=== PATIENT | female | born 1995 | race Caucasian/White ===

== ENCOUNTER 2017-12-25 20:41 | Emergency (ER) | payer OTHER ==
[2017-12-25] MEDS ORDERED: METHYLPREDNISOLONE INJ 125 MG/2 ML SDV IV ONE (22:21)
[2017-12-25] MEDS ORDERED: NORMAL SALINE 1000 ML 1,000 ML IV ONE (22:21)
[2017-12-25] MEDS ORDERED: FAMOTIDINE INJ/PF 20 MG/2 ML SDV IV ONE (22:21)
[2017-12-25] MEDS ORDERED: DIPHENHYDRAMINE HCL 50 MG/ML VIAL IV ONE ×2 (22:21→23:30)
--- NOTE | 2017-12-25 22:22 | ER Document Report ---
ED Allergic Reaction - General Chief Complaint: Allergic Reaction Stated Complaint: POSSIBLE ALLERGIC REACTION Time Seen by Provider: 12/25/17 22:15 Notes: Patient is a 22-year-old female who comes emergency department for chief complaint of allergic reaction. She states she was out running when she started to feel itchiness in her face, then she suddenly broke out into an itchy rash all over her body mainly on her arms, legs, and back. She denies any difficulty breathing or swallowing, denies any swelling of the tongue or face. She denies history of the same. No daily medications reported. 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 LMP within the past month. TRAVEL OUTSIDE OF THE [place] IN LAST 30 DAYS: No - Related Data Allergies/Adverse Reactions: mushroom Allergy (Verified 12/25/17 21:23) Past Medical History - General Information source: Patient - Social History Smoking Status: Never Smoker Chew tobacco use (# tins/day): No Frequency of alcohol use: Social Drug Abuse: None Lives with: Family Family History: None Patient has suicidal ideation: No Patient has homicidal ideation: No Renal/ Medical History: Denies: Hx Peritoneal Dialysis Past Surgical History: Reports: Hx Orthopedic Surgery - left ring finger reattached Review of Systems - Review of Systems Constitutional: No symptoms reported EENT: No symptoms reported Cardiovascular: No symptoms reported Respiratory: No symptoms reported Gastrointestinal: No symptoms reported Genitourinary: No symptoms reported Female Genitourinary: No symptoms reported Musculoskeletal: No symptoms reported Skin: See HPI Hematologic/Lymphatic: No symptoms reported Neurological/Psychological: No symptoms reported Physical Exam - Vital signs Vitals: Temp Pulse Resp BP Pulse Ox 97.7 F 121 H 16 115/85 96 12/25/17 20:55 12/25/17 20:55 12/25/17 20:55 12/25/17 20:55 12/25/17 20:55 - Notes Notes: GENERAL: Alert, interacts well. No acute distress. HEAD: Normocephalic, atraumatic. EYES: Pupils equal, round, and reactive to light. Extraocular movements intact. ENT: Oral mucosa moist, tongue midline. No uvular edema, no posterior pharyngeal swelling, no airway compromise, normal oropharyngeal exam otherwise. NECK: Full range of motion. Supple. Trachea midline. LUNGS: Clear to auscultation bilaterally, no wheezes, rales, or rhonchi. No respiratory distress. HEART: Regular rate and rhythm. No murmur ABDOMEN: Soft, non-tender. Non-distended. Bowel sounds present in all 4 quadrants. EXTREMITIES: Moves all 4 extremities spontaneously. No edema, normal radial and dorsalis pedis pulses bilaterally. No cyanosis. BACK: no cervical, thoracic, lumbar midline tenderness. No saddle anesthesia, normal distal neurovascular exam. NEUROLOGICAL: Alert and oriented x3. Normal speech. [cranial nerves II through XII grossly intact]. PSYCH: Normal affect, normal mood. SKIN: Faint urticarial rash noted over the upper back and over the forearms. Otherwise unremarkable skin exam. Course - Re-evaluation Re-evalutation: 12/25/17 23:30 Patient reevaluated at bedside, unfortunately her urticaria is worsening after initial improvement, however she has not been medicated yet. Patient will be medicated now. Reevaluated again, urticaria still worsening, no significant change otherwise. Decision was made to give epinephrine. After epinephrine symptoms completely resolved. Patient has been monitored in the emergency department for multiple hours. No evidence of anaphylaxis development. Patient requesting discharge. Will be discharged with antihistamines, epinephrine, discussed follow-up, discussed return precautions in detail. Patient states understanding and agreement. - Vital Signs Vital signs: Temp Pulse Resp BP Pulse Ox 98.1 F 102 H 18 105/64 97 12/26/17 02:57 12/26/17 02:57 12/26/17 02:57 12/26/17 02:57 12/26/17 02:57 Discharge - Discharge Clinical Impression: Urticaria Condition: Stable Disposition: HOME, SELF-CARE Additional Instructions: Your evaluation indicated an allergic reaction, showed urticaria (hives). Recommendation is to take the antihistamine for the next 7 days. Follow-up with primary care. You may need allergy testing. In the event of your developing any signs of anaphylaxis including swelling of the throat, face, tongue, or airway causing difficulty breathing taking the epinephrine and return immediately to the emergency department. Return for any other concerning symptoms. Prescriptions: Cetirizine HCl [Zyrtec 10 mg Tablet] 1 tab PO DAILY #30 tablet Epinephrine [Epipen 2-Stuart] 0.3 mg IM ASDIR PRN #1 packet PRN Reason:
[2017-12-26] MEDS ORDERED: EPINEPHRINE INJ/PF 1 MG/1 ML AMPULE IM ONE (00:31)
[2017-12-26 03:03] VITALS: BP 105/64
== END 2017-12-26 02:57 | disposition home or self-care (01) ==
LOC: ER 20:41
DX: L50.9 Urticaria, unspecified (principal)
CPT/HCPCS: 99283; 96372; 96361; 96374; 96375; J1200; J0171; J2930; J7030; S0028

== ENCOUNTER 2018-10-03 09:27 | Emergency (ER) | payer SELFPAY ==
[2018-10-03] MEDS ORDERED: PSEUDOEPHEDRINE HCL 30 MG TABLET PO ONE (10:02)
[2018-10-03] MEDS ORDERED: IPRATROPIUM/ALBUTEROL 0.5-2.5 MG/3 ML AMPUL NEB ONE (10:02)
[2018-10-03] MEDS ORDERED: ACETAMINOPHEN 325 MG TABLET PO ONE (10:04)
--- NOTE | 2018-10-03 10:04 | ER Document Report ---
HPI - HPI Patient complains to provider of: Sore throat, cough, chest pain with coughing Time Seen by Provider: 10/03/18 09:55 Onset: Other - 3 days Onset/Duration: Persistent Quality of pain: Achy Pain Level: 2 Context: Patient presents complaining of sore throat cough and chest pain with coughing for the past 3 days. Patient does complain of sinus congestion and occasional dizziness. Patient does report occasional sneezing. Associated Symptoms: Chest pain, Nonproductive cough, Rhinnorhea, Sore throat. denies: Productive cough, Fever, Nausea Exacerbated by: Movement, Coughing Relieved by: Denies Similar symptoms previously: No Recently seen / treated by doctor: No - ROS ROS below otherwise negative: Yes Systems Reviewed and Negative: Yes All other systems reviewed and negative - CONSTITUTIONAL Constitutional: DENIES: Fever, Chills - EENT EENT: REPORTS: Sore Throat, Nasal Drainage-Clear, Congestion - NEURO Neurology: REPORTS: Dizzinesss / Vertigo. DENIES: Headache, Vision blurred - CARDIOVASCULAR Cardiovascular: REPORTS: Chest pain - RESPIRATORY Respiratory: REPORTS: Coughing - GASTROINTESTINAL Gastrointestinal: DENIES: Abdominal Pain, Nausea, Patient vomiting - REPRODUCTIVE Reproductive: DENIES: : - MUSCULOSKELETAL Musculoskeletal: DENIES: Back Pain - DERM Skin Color: Normal Skin Problems: None Past Medical History - General Information source: Patient, Parent - Social History Smoking Status: Never Smoker Frequency of alcohol use: None Drug Abuse: None Occupation: [employer] Lives with: Family Family History: None Patient has suicidal ideation: No Patient has homicidal ideation: No - Medical History Medical History: Negative Renal/ Medical History: Denies: Hx Peritoneal Dialysis Past Surgical History: Reports: Hx Orthopedic Surgery - left ring finger reattached Vertical Provider Document - CONSTITUTIONAL Agree With Documented VS: Yes Exam Limitations: No Limitations General Appearance: WD/WN, No Apparent Distress - INFECTION CONTROL TRAVEL OUTSIDE OF THE [place] IN LAST 30 DAYS: No - HEENT HEENT: Atraumatic, Normocephalic, Pharyngeal Tenderness, Pharyngeal Erythema. negative: Pharyngeal Exudate, Tympanic Membrane Red, Tympanic Membrane Bulging Notes: clear rhinorrhea - NECK Neck: Normal Inspection, Supple. negative: Lymphadenopathy-Left, Lymphadenopathy-Right - RESPIRATORY Respiratory: Breath Sounds Normal, No Respiratory Distress. negative: Chest Non-Tender - Anterior chest wall tenderness with palpation, Rales, Rhonchi, Wheezing - CARDIOVASCULAR Cardiovascular: Regular Rate, Regular Rhythm, No Murmur - BACK Back: Normal Inspection. negative: CVA Tenderness-Left - MUSCULOSKELETAL/EXTREMETIES Musculoskeletal/Extremeties: MAEW, FROM, Non-Tender - NEURO Level of Consciousness: Awake, Alert, Appropriate Motor/Sensory: No Motor Deficit - DERM Integumentary: Warm, Dry, No Rash Course - Re-evaluation Re-evalutation: 10/03/18 11:03 Patient presents with upper respiratory symptoms with chest discomfort with coughing. Patient does complain of occasional dizziness although does have si nus congestion symptoms as well. Patient low probability Wells criteria with a negative d-dimer at this time, no concern for PE. 10/03/18 11:48 Respirations even unlabored, patient nontoxic in appearance. No concern for ATTORNEY GENERAL or strep at this time. Patient able to manage oral secretions. Good return precautions discussed with patient. - Vital Signs Vital signs: Temp Pulse Resp BP Pulse Ox 98.5 F 100 17 103/66 94 10/03/18 09:34 10/03/18 09:34 10/03/18 09:34 10/03/18 09:34 10/03/18 09:34 - Laboratory Laboratory results interpreted by me: 10/03/18 11:00 Labs- Entire Visit 10/03/18 10/03/18 10:11 10:23 D-Dimer 0.47 Group A Strep Rapid NEGATIVE - Diagnostic Test Radiology reviewed: Image reviewed, Reports reviewed - EKG Interpretation by Me EKG shows normal: Sinus rhythm Rate: Normal Rhythm: NSR Additional EKG results interpreted by me: 10/03/18 11:[address] elevation, QTc 413 Discharge - Discharge Clinical Impression: Sore throat, Chest wall pain Upper respiratory infection Qualifiers: URI type: unspecified URI Qualified Code(s): J06.9 - Acute upper respiratory infection, unspecified Condition: Stable Disposition: HOME, SELF-CARE Instructions: Anti-Inflammatory Medication ([facility]), Chest Wall Pain ([facility]), Sore Throat ([facility]), Upper Respiratory Illness ([facility]) Additional Instructions: Return immediately for any new or worsening symptoms Followup with your primary care provider, call tomorrow to make a followup appointment Culture is pending, we will call if you need any different treatment Prescriptions: Albuterol Sulfate [Proair Hfa Inhalation Aerosol 8.5 gm Mdi] 2 puff IH Q4 PRN #1 mdi PRN Reason: Inhaler,Assist Device,Accesory [Optichamber] 1 each MC Q4 PRN #1 each PRN Reason: Meclizine HCl [Antivert 25 mg Tablet] 25 mg PO ASDIR PRN #15 tablet PRN Reason: Naproxen [Naprosyn 250 Nmg Tablet] 1 tab PO BID #14 tablet Forms: Return to Work Referrals: [facility] [Provider Group] - Follow up as needed
[2018-10-03] MEDS ORDERED: MECLIZINE HCL 25 MG TABLET PO ONE (11:01)
--- NOTE | 2018-10-03 11:17 | RADIOLOGY REPORT (SQ) ---
EXAM DESCRIPTION: CHEST 2 VIEWS COMPLETED DATE/TIME: 10/03/2018 11:08 am REASON FOR STUDY: cough, cp COMPARISON: None. TECHNIQUE: Frontal and lateral radiographic views of the chest acquired. NUMBER OF VIEWS: Two view. LIMITATIONS: None. FINDINGS: LUNGS AND PLEURA: No opacities, masses or pneumothorax. No pleural effusion. MEDIASTINUM AND HILAR STRUCTURES: No masses or contour abnormalities. HEART AND VASCULAR STRUCTURES: Heart normal size. No evidence for failure. BONES: No acute findings. HARDWARE: None in the chest. OTHER: No other significant finding. IMPRESSION: NO SIGNIFICANT RADIOGRAPHIC FINDING IN THE CHEST. TECHNICAL DOCUMENTATION: JOB ID: [id number] [employer]- All Rights Reserved Reading location - IP/workstation name: [email or web address]
[2018-10-03 12:12] VITALS: BP 106/65
--- NOTE | 2018-10-03 12:24 | EKG REPORT ---
SEVERITY:- NORMAL ECG - SINUS RHYTHM : Confirmed by: Behzad Jordan MD 03-Oct-2018 12:23:55
== END 2018-10-03 12:12 | disposition home or self-care (01) ==
LOC: ER 09:27
DX: J06.9 Acute upper respiratory infection, unspecified (principal); J02.9 Acute pharyngitis, unspecified; R07.89 Other chest pain
CPT/HCPCS: 93005; 94640; 99284; 36415; 87070; 87880; 85379; 71046; 93010; J7620